=== PATIENT | male | born 1945 | race Caucasian/White ===

== ENCOUNTER 2020-10-14 10:50 | Emergency (ER) | payer MEDICARE, MEDICAID ==
[~2020-10-14] VITALS: Ht 165.1 cm; Wt 61.4 kg
[2020-10-14 11:39] LABS: HEMOGLOBIN 12.4 g/dl (14.0-17.9); LYMPHOCYTES # (AUTO) 1.7 X10'3 (1.1-4.8); LYMPHOCYTES % (AUTO) 9.9 % (21-51); MONOCYTES # (AUTO) 0.1 X10'3 (0-0.9); WHITE BLOOD COUNT 17.2 X10'3 (4.5-11.0)
[2020-10-14 11:41] LABS: BASOPHILS # (AUTO) 0.1 X10'3 (0-0.2); BASOPHILS % (AUTO) 0.5 % (0-1); EOSINOPHILS # (AUTO) 0.1 X10'3 (0-0.9); EOSINOPHILS % (AUTO) 0.4 % (0-6); HEMATOCRIT 39.3 % (42.0-52.0); MEAN CORPUSCULAR HEMOGLOBIN 31.2 PG (27.0-31.0); MEAN CORPUSCULAR HGB CONC 31.6 g/dL (33.0-36.5); MEAN CORPUSCULAR VOLUME 98.8 FL (78-98); MEAN PLATELET VOLUME 8.7 FL (7.4-10.4); MONOCYTES % (AUTO) 0.5 % (2-12); NEUTROPHILS # (AUTO) 15.3 X10'3 (1.8-7.7); NEUTROPHILS % (AUTO) 88.7 % (42-75); PLATELET COUNT 882 X10'3 (140-440); RED BLOOD COUNT 3.98 X10'6 (4.70-6.10); RED CELL DISTRIBUTION WIDTH 19.9 % (11.5-14.5)
[2020-10-14 11:49] LABS: CLARITY,URINE CLEAR (Clear); COLOR,URINE STRAW (Yellow); GLUCOSE, URINE NEGATIVE (Neg); KETONES,URINE NEGATIVE (Neg); LEUKOCYTE ESTERASE ,URINE NEGATIVE (Neg); NITRITES, URINE NEGATIVE (Neg); OCCULT BLOOD,URINE NEGATIVE (Neg); PROTEIN,URINE NEGATIVE (Neg); UROBILINOGEN,URINE 0.2 E.U/dL (0.2-1.0)
[2020-10-14 11:50] LABS: UA COLLECTION TYPE VOIDED
[2020-10-14 11:56] LABS: ALANINE AMINOTRANSFERASE 20 U/L (12-78); ALBUMIN 3.4 G/DL (3.4-5.0); ALBUMIN/GLOBULIN RATIO 0.9 (1.1-1.5); ALKALINE PHOSPHATASE 83 IU/L (46-116); ANION GAP 7 (8-16); ASPARTATE AMINO TRANSFERASE 17 U/L (10-37); BLOOD UREA NITROGEN 11 MG/DL (7-18); BUN/CREATININE RATIO 12.5 (5.4-32.0); CHLORIDE 103 MMOL/L (99-107); CREATININE 0.88 MG/DL (0.60-1.10); GLUCOSE 107 MG/DL (70-104); POTASSIUM 3.6 MMOL/L (3.5-5.1); SODIUM 139 MMOL/L (135-145); TOTAL CARBON DIOXIDE 28.7 MMOL/L (24-32); TOTAL PROTEIN 7.2 G/DL (6.4-8.2); eGFR 84 ML/MIN
[2020-10-14 12:09] LABS: PLATELET ESTIMATE INCREASED
[2020-10-14 12:11] LABS: POLYCHROMASIA 2+
[2020-10-14 12:13] LABS: ANISOCYTOSIS 2+; HYPOCHROMASIA 1+; POIKILOCYTOSIS 1+; STOMATOCYTES 2+
[2020-10-14 12:14] LABS: SCHISTOCYTES FEW
[2020-10-14] MEDS ORDERED: PRED20TA PO (14:17)
[2020-10-14] MEDS ORDERED: DICL100G30 TOP (14:17)
[2020-10-14] MEDS ORDERED: PRED50TA PO (14:17)
[2020-10-14 14:48] VITALS: BP 158/78
== END 2020-10-14 14:54 | disposition home or self-care (01) ==
LOC: ER 10:51
DX: M13.831 Other specified arthritis, right wrist (principal); M79.642 Pain in left hand; M79.89 Other specified soft tissue disorders; M25.532 Pain in left wrist; Z79.899 Other long term (current) drug therapy
CPT/HCPCS: 36415; 80053; 81003; 85008; 85025; 99283

== ENCOUNTER 2024-06-23 19:12 | Emergency (ER) | payer MEDICARE, MEDICAID ==
[~2024-06-23] VITALS: Ht 165.1 cm; Wt 58.2 kg
[~2024-06-23 19:12] MED LIST: ASPI81TA52 PO; ATOR10TA PO; CELE-127 PO; CLOP75TA34 PO; FEBU40TA6 PO; METO-395 PO; NITR0.4T51 SL
[2024-06-23 19:20] VITALS: TEMP 98.1
[2024-06-23 20:54] LABS: HEMOGLOBIN 11.9 g/dl (14.0-17.9); RED CELL DISTRIBUTION WIDTH 17.3 % (11.5-14.5)
[2024-06-23 20:56] LABS: BASOPHILS # (AUTO) 0.1 X10'3 (0-0.2); BASOPHILS % (AUTO) 1.1 % (0-1); EOSINOPHILS # (AUTO) 0.1 X10'3 (0-0.9); EOSINOPHILS % (AUTO) 1.1 % (0-6); HEMATOCRIT 36.7 % (42.0-52.0); LYMPHOCYTES # (AUTO) 1.2 X10'3 (1.1-4.8); MEAN CORPUSCULAR HEMOGLOBIN 33.4 PG (27.0-31.0); MEAN CORPUSCULAR HGB CONC 32.5 g/dL (33.0-36.5); MEAN CORPUSCULAR VOLUME 102.9 FL (78-98); MEAN PLATELET VOLUME 8.6 FL (7.4-10.4); MONOCYTES # (AUTO) 0.1 X10'3 (0-0.9); MONOCYTES % (AUTO) 1.3 % (2-12); NEUTROPHILS # (AUTO) 9.4 X10'3 (1.8-7.7); NEUTROPHILS % (AUTO) 85.5 % (42-75); RED BLOOD COUNT 3.56 X10'6 (4.70-6.10)
[2024-06-23 20:59] LABS: ALBUMIN 3.9 G/DL (3.4-5.0); ANION GAP 7 (8-16); BLOOD UREA NITROGEN 10 MG/DL (7-18); BUN/CREATININE RATIO 8.8 (10.0-20.0); CHLORIDE 104 MMOL/L (99-107); CREATININE 1.14 MG/DL (0.60-1.10); GLUCOSE 98 MG/DL (70-104); POTASSIUM 4.1 MMOL/L (3.5-5.1); SODIUM 138 MMOL/L (135-145); TOTAL CARBON DIOXIDE 26.8 MMOL/L (24-32); eCRCL 44 ML/MIN; eGFR 62 ML/MIN
[2024-06-23] MEDS ORDERED: iohexol 300mg/ml 100ml inj. ONE (21:05)
[2024-06-23 21:13] LABS: PLATELET COUNT 1080 X10'3 (140-440)
[2024-06-23 21:25] LABS: LARGE PLATELETS FEW; PLATELET ESTIMATE INCREASED; TOTAL CELLS COUNTED 100
[2024-06-23 21:26] LABS: ANISOCYTOSIS 1+
[2024-06-23 21:27] LABS: BURR CELLS FEW; POLYCHROMASIA 2+
[2024-06-23 21:29] LABS: SCHISTOCYTES FEW
[2024-06-23 22:23] VITALS: BP 133/54; PULSE 79; RESP 16; O2SAT 99
== END 2024-06-23 23:00 | disposition home or self-care (01) ==
LOC: ER 19:13
DX: C15.9 Malignant neoplasm of esophagus, unspecified (principal); Z88.8 Allergy status to other drugs, medicaments and biological substances; Z79.82 Long term (current) use of aspirin; Z79.899 Other long term (current) drug therapy; Z79.2 Long term (current) use of antibiotics
CPT/HCPCS: 36415; 70491; 80048; 85007; 85025; 99285; Q9967

== ENCOUNTER 2024-07-07 11:00 | Day surgery (SDC) | payer MEDICARE, MEDICAID ==
[~2024-07-07] VITALS: Ht 165.1 cm; Wt 58.1 kg
[~2024-07-07 11:00] MED LIST changes: -ATOR10TA PO; +ATOR10TA70 PO; +CLOP75TA33 PO; -CLOP75TA34 PO
[2024-07-07 11:24] VITALS: BP 140/66; PULSE 73; RESP 16
[2024-07-07] MEDS ORDERED: LIDOcaine 2% Viscous 15ml cup ONE (12:12)
[2024-07-07 12:30] VITALS: BP 112/53; PULSE 65; RESP 13; O2SAT 95
[2024-07-07] MEDS ORDERED: propofol inj 20 ML IV ONE ×2 (12:30)
[2024-07-07 12:40] VITALS: BP 109/51; PULSE 64; RESP 14; O2SAT 97
[2024-07-07 12:50] VITALS: BP 114/58; PULSE 67; RESP 14; O2SAT 98
[2024-07-07 13:00] VITALS: BP 112/51; PULSE 64; RESP 15; O2SAT 99
== END 2024-07-07 13:05 | disposition home or self-care (01) ==
LOC: GI LAB 11:00
PROVIDERS: ATTEND Internal Medicine Gastroenterology
DX: R13.10 Dysphagia, unspecified (principal); D49.0 Neoplasm of unspecified behavior of digestive system; M10.9 Gout, unspecified; Z88.8 Allergy status to other drugs, medicaments and biological substances
CPT/HCPCS: 43239; A4620; J2704; J7030; Z7512